=== PATIENT | female | born 1970 | race Caucasian/White ===

== ENCOUNTER 2017-05-14 14:26 | Emergency (ER) | payer MEDICAID ==
[~2017-05-14] VITALS: Ht 160 cm; Wt 10.9 kg
[~2017-05-14 14:26] MED LIST: LISI10TA11 PO
[2017-05-14 14:38] VITALS: BP 160/107
[2017-05-14] MEDS ORDERED: ORE25 PO (14:43)
[2017-05-14] MEDS ORDERED: PB97.2 PO (14:43)
--- NOTE | 2017-05-14 15:05 | NUR ---
Patient to bed 11 at this time.
--- NOTE | 2017-05-14 15:31 | NUR ---
46/F BIB C/O LEFT KNEE THROBBING PAIN FOR TWO MONTHS WORSE TODAY. DENIES INJURY OR ACCIDENT. HX OF HTN. SKIN IS PINK/WARM/DRY; AAOX4 WITH EVEN AND UNSTEADY GAIT ;AMB WITH CANE; LUNGS CLEAR BL; PATIENT STATES PAIN OF 8/10 AT THIS TIME; PATIENT POSITIONED FOR COMFORT; HOB ELEVATED; BEDRAILS UP X2; BED DOWN. ER MD MADE AWARE OF PT STATUS.
[2017-05-14] MEDS ORDERED: oxyCODONE/APAP 5/325 MG 1 TAB TAB PO ONE (15:45)
--- NOTE | 2017-05-14 15:48 | NUR ---
Patient being evaluated by DR NGUYEN at bedside.
--- NOTE | 2017-05-14 16:05 | NUR ---
X RAY AT BEDSIDE.
[2017-05-14 17:07] VITALS: BP 147/90
== END 2017-05-14 17:00 | disposition home or self-care (01) ==
LOC: MED 14:26
DX: M25.562 Pain in left knee (principal); I10 Essential (primary) hypertension; Z79.899 Other long term (current) drug therapy
CPT/HCPCS: 73562; 99284; Q0092

== ENCOUNTER 2017-12-30 11:17 | Emergency (ER) | payer SELFPAY ==
[~2017-12-30] VITALS: Ht 160 cm; Wt 98.4 kg
[~2017-12-30 11:17] MED LIST changes: +ORE25 PO; +PB97.2 PO
[2017-12-30 11:21] VITALS: BP 157/100
--- NOTE | 2017-12-30 11:25 | NUR ---
Patient ambulated to bed 6. RN evaluating patient at bedside.
--- NOTE | 2017-12-30 11:26 | NUR ---
Report given to Daniel WAKEFIELD.
--- NOTE | 2017-12-30 11:32 | NUR ---
PT C/O LEFT EAR PAIN FOR 2 WEEKS, DENIES FEVER. STATES SHE ALREADY FINISHED ONE COURSE OF ABX, WITH NO RELIEF. DENEIS DRAINAGE. NAD NOTED/STATED OTHERWISE, PENDING MD MCCOLLUM.
[2017-12-30] MEDS ORDERED: LEVOFLOXACIN 500 MG TAB PO ONE (12:30)
[2017-12-30] MEDS ORDERED: KETOROLAC 60 MG/2 ML VIAL IM ONE (12:30)
[2017-12-30] MEDS ORDERED: MECLIZINE 25 MG TAB PO ONE (12:50)
[2017-12-30] MEDS ORDERED: ONDANSETRON 4 MG ODT PO ONE (12:50)
--- NOTE | 2017-12-30 13:45 | NUR ---
PT TOLERATED LEFT EAR IRRIGATION BY ADRIENNE GONZALEZ WELL. RESTING IN BED, PENDING REEVAL BYMD.
[2017-12-30 14:45] VITALS: BP 148/84
--- NOTE | 2017-12-30 14:45 | NUR ---
Patient discharged with v/s stable. Written and verbal after care instructions given and explained. Patient alert, oriented and verbalized understanding of instructions. Ambulatory with steady gait. All questions addressed prior to discharge. ID band removed. Patient advised to follow up with PMD. Rx of ANTIVERT, MOTRIN, AND CORTISPORIN given. Patient educated on indication of medication including possible reaction and side effects. Opportunity to ask questions provided and answered.
== END 2017-12-30 14:45 | disposition home or self-care (01) ==
LOC: MED 11:17
DX: H60.12 Cellulitis of left external ear (principal); H60.92 Unspecified otitis externa, left ear; I10 Essential (primary) hypertension; Z79.899 Other long term (current) drug therapy
CPT/HCPCS: 96372; 99284; J1885; J8597; S0119